=== PATIENT | male | born 1995 | race Caucasian/White ===

== ENCOUNTER 2017-09-04 20:50 | Emergency (ER) | payer BC ==
[~2017-09-04] VITALS: Ht 180.3 cm; Wt 79.5 kg
[~2017-09-04 20:50] MED LIST: AMOX875T2 PO; IBUP1TAB7 PO
[2017-09-04 21:12] VITALS: BP 169/75; PULSE 119; RESP 14; TEMP 98.6; O2SAT 98
--- NOTE | 2017-09-04 22:22 | PD ---
HPI Chief Complaint: Laceration/Skin Injury Time Seen by Provider: 22:08 Travel History International Travel<30 days: No Contact w/Intl Traveler<30days: No Traveled to known affect area: No History of Present Illness HPI 22-year-old white male presents emergency department complains of a laceration to his right cheek which occurred this afternoon while wakeboarding. He states that the board came up and struck him in the face. He was not knocked unconscious. He denies any numbness, tingling. No neck or back pain. No dental injury. Up-to-date with immunizations. He did sustain a laceration. Pain is mild. PFSH Past Medical History Medical History: Denies Significant Hx Immunizations Current: Yes Tetanus Vaccination: < 5 Years Past Surgical History Surgical History: No Previous Surgery Social History Alcohol Use: Yes (OCC) Tobacco Use: No Substance Use: Yes (MARIJUANA) Allergies-Medications (Allergen,Severity, Reaction): Coded Allergies: No Known Allergies (Unverified , 01/26/17) Reported Meds & Prescriptions Reported Meds & Active Scripts Active No Active Prescriptions or Reported Medications Review of Systems General / Constitutional: No: Fever Eyes: No: Visual changes HENT: No: Headaches Cardiovascular: No: Chest Pain or Discomfort Respiratory: No: Shortness of Breath Gastrointestinal: No: Abdominal Pain Genitourinary: No: Dysuria Musculoskeletal: No: Pain Skin: No Rash Neurologic: No: Weakness Psychiatric: No: Depression Endocrine: No: Polydipsia Hematologic/Lymphatic: No: Easy Bruising Physical Exam Narrative GENERAL: Well-developed, well-nourished in no acute distress. Nontoxic appearing. HEAD: Normocephalic, 2 cm laceration right cheek this is just into the dermis. No deep injury EYES: Pupils equal round and reactive. Extraocular motions intact. No scleral icterus. No injection or drainage. ENT: TMs clear without erythema. The external auditory canals clear. Nose: clear . Posterior pharynx is pink and moist. No tonsillar edema or exudate. Uvula midline. Airway patent. NECK: Trachea midline.Supple, nontender, moves head freely. No central bony tenderness or spasm. CARDIOVASCULAR: Regular rate and rhythm without murmurs, gallops, or rubs. RESPIRATORY: Clear to auscultation. Breath sounds equal bilaterally. No wheezes , rales, or rhonchi. GASTROINTESTINAL: Abdomen soft, non-tender, nondistended. No hepato-splenomegaly , or palpable masses. No guarding. EXTREMITIES: No clubbing, cyanosis, or edema. No joint tenderness, effusion, or edema noted. BACK: Nontender without deformity or crepitance. No flank tenderness. Data Data Last Documented VS Vital Signs Date Time Temp Pulse Resp B/P (MAP) Pulse Ox O2 Delivery O2 Flow Rate FiO2 09/04/17 21:12 98.6 119 14 169/75 (106) 98 Orders Orders Ed Discharge Order (09/04/17 22:18) MDM Medical Decision Making Medical Screen Exam Complete: Yes Emergency Medical Condition: Yes Medical Record Reviewed: Yes Differential Diagnosis MDM: High Differential diagnoses: Fracture, sprain, strain, dislocation, contusion, neurovascular injury Narrative Course Patient's lacerations closed with Dermabond and Steri-Strips applied. This is facial laceration Procedures Procedure Narrative Right facial laceration: Laceration measures 2 cm into the dermis. No deep subcu injury. The skin is prepped with Hibiclens. Normal saline irrigation. Wound edges are approximated and closed with Dermabond. Steri-Strips applied on top. No complications. Diagnosis Primary Impression: Facial laceration Patient Instructions: General Instructions Additional Instructions: Rest. Ice pack tonight. Tylenol or Advil for pain. Keep clean and dry for the next week. Anticipate the Steri-Strips and glue to come off in 1 week. As the edges peel up trim them without pulling them off. Sunscreen and mederma for 6 months. Return to the ER for any problems. Med/Other Pt SpecificInfo: Wound Care Scripts No Active Prescriptions or Reported Meds Disposition: 01 DISCHARGE HOME Condition: Stable Mark Palmer September 04, 2017 22:22
== END 2017-09-04 22:36 | disposition home or self-care (01) ==
LOC: NEPD 20:50
DX: S01.411A Laceration without foreign body of right cheek and temporomandibular area, initial encounter (principal); W22.8XXA Striking against or struck by other objects, initial encounter; Y93.17 Activity, water skiing and wake boarding
CPT/HCPCS: 12011